=== PATIENT | female | born 1955 | race Caucasian/White ===

== ENCOUNTER 2019-05-22 07:41 | Observation (INO) ==
[2019-05-22] MEDS ORDERED: levoFLOXacin 750 MG/150 ML 750 MG/150 ML BAG IVPB ONE (08:20)
[2019-05-22] MEDS ORDERED: 0.9 % Sodium Chloride 1,000 ML IVC SCH ×2 (08:30→16:31)
[2019-05-22 08:40] LABS: Basophils # 0.1 K/mcL (0.0-0.2); Basophils % 0.6 %; Eosinophils # 0.2 K/mcL (0.0-0.6); Eosinophils % 1.4 %; Hematocrit 37.9 % (35.3-44.9); Hemoglobin 12.5 g/dL (11.5-15.4); Immature Granulocytes % 1.7 % (0-4); Lymphocytes # 2.2 K/mcL (0.6-4.6); Lymphocytes % 17.8 %; Mean Corpuscular Hemoglobin 32.1 pg (28.0-33.3); Mean Corpuscular Volume 97.2 fL (83.0-100.0); Mean Platelet Volume 8.9 fL (9.4-12.4); Monocytes # 0.7 K/mcL (0.0-1.3); Monocytes % 5.3 %; Platelet Count 510 K/mcL (140-400); Red Cell Distribution Width 12.9 % (11.5-14.5); Segmented Neutrophils % 73.2 %; White Blood Count 12.3 K/mcL (4.3-11.1)
[2019-05-22 08:47] LABS: Prothrombin Time 11.5 Seconds (9.4-12.1)
[2019-05-22 08:56] LABS: Alanine Aminotransferase 9 Units/L (7-52); Albumin 3.9 g/dL (3.5-5.7); Albumin/Globulin Ratio 1.3 (1.1-2.2); Alkaline Phosphatase 108 Units/L (34-104); Aspartate Amino Transferase 10 Units/L (13-39); BUN/Creatinine Ratio 19 (6-26); Bilirubin,Total 0.4 mg/dL (0.3-1.0); Blood Urea Nitrogen 11 mg/dL (8-23); Carbon Dioxide 26 mEq/L (23-29); Chloride 105 mEq/L (98-107); Glucose 106 mg/dL (70-105); Osmolality,Calculated 286 (280-300); Potassium 3.8 mEq/L (3.5-5.1); Sodium 138 mEq/L (136-145); Total Protein 6.9 g/dL (6.4-8.9); eGFR For African Americans > 60 (> 60); eGFR For Non-African Americans > 60 (> 60)
[2019-05-22] MEDS ORDERED: *HR* Midazolam HCl 2 MG/2 ML VIAL ONE (13:05)
[2019-05-22] MEDS ORDERED: *HR* FentaNYL (PF) 100 MCG/2 ML VIAL ONE (13:05)
[2019-05-22] MEDS ORDERED: *HR* Propofol 200 MG/20 ML VIAL IVP ONE (13:07)
[2019-05-22] MEDS ORDERED: Lidocaine -MPF 2% 2 ML VIAL ONE (13:08)
[2019-05-22] MEDS ORDERED: *HR* Succinylcholine 200 MG/10 ML VIAL IVP ONE (13:14)
[2019-05-22] MEDS ORDERED: *HR* OxyCODONE Immed Rel 5 MG TABLET PO PRN (13:42)
[2019-05-22] MEDS ORDERED: traMADol 50 MG TABLET PO PRN (13:42)
[2019-05-22] MEDS ORDERED: Ketorolac 30 MG/ML VIAL IVP ONE (13:42)
[2019-05-22] MEDS ORDERED: *HR* Promethazine 25 MG/ML VIAL IVP PRN (13:42)
[2019-05-22] MEDS ORDERED: Acetaminophen IV 1,000 MG/100 ML INFUS..BTL IVPB ONE (13:42)
[2019-05-22] MEDS ORDERED: Ringers Solution, Lactated 1,000 ML IVC SCH (13:45)
[2019-05-22] MEDS ORDERED: Dexamethasone 4 MG/ML VIAL ONE (13:49)
[2019-05-22] MEDS ORDERED: Ondansetron 4 MG/2 ML VIAL ONE ×2 (13:49→15:44)
[2019-05-22] MEDS ORDERED: cefTRIAXone 2,000 MG in Water for inj. (sterile) 20 ML IVP ONE (14:08)
[2019-05-22] MEDS ORDERED: Ketorolac 30 MG/ML VIAL ONE ×2 (15:09)
[2019-05-22 16:02] VITALS: BP 108/69
[2019-05-22] MEDS ORDERED: *HR* OxyCODONE/APAP 5/325 TABLET PO PRN (16:31)
[2019-05-22] MEDS ORDERED: Acetaminophen 325 MG TABLET PO PRN (16:31)
== END 2019-05-22 18:36 | disposition home or self-care (01) ==
LOC: EMEROOARM 07:41 → 3BNU 07:41
PROVIDERS: ADMIT Surgery; ATTEND Surgery

== ENCOUNTER 2021-01-16 11:48 | Observation (INO) ==
[2021-01-16] MEDS ORDERED: Morphine Sulfate 2 MG/ML SYRINGE IVP ONE (13:26)
[2021-01-16] MEDS ORDERED: 0.9 % Sodium Chloride 1,000 ML IV ONE (13:26)
[2021-01-16] MEDS ORDERED: Ondansetron 4 MG/2 ML VIAL IVP ONE (13:26)
[2021-01-16 14:41] LABS: Bacteria,Urine Few per hpf (None-Few); Bilirubin,Urine Negative (Negative); Blood,Urine Large (Negative); Clarity,Urine Turbid (Clear); Color,Urine Yellow (Yellow); Glucose,Urine (UA) Normal (Normal); Ketones,Urine Negative (Negative); Leukocyte Esterase,Urine Large (Negative); Mucus,Urine Moderate per lpf (None-Few); Nitrite,Urine Negative (Negative); Protein,Urine 200 mg/dL (Neg-Trace); RBC,Urine TNTC per hpf (0-3); Renal Epithelial Cells,Urine Few per hpf (None-Few); Specific Gravity,Urine 1.018 (1.010-1.025); Squamous Epithelial Cell,Urine Moderate per hpf (None-Few); Urobilinogen,Urine Normal (Normal); WBC,Urine TNTC per hpf (0-3)
[2021-01-16 15:12] LABS: Basophils % 0.3 %; Hemoglobin 8.5 g/dL (11.5-15.4); Immature Platelets 3.5 % (1.1-6.1); Lymphocytes # 0.2 K/mcL (0.6-4.6); Lymphocytes % 4.5 %; Mean Corpuscular HGB Conc 32.7 g/dL (31.6-35.5); Mean Corpuscular Hemoglobin 33.1 pg (28.0-33.3); Mean Corpuscular Volume 101.2 fL (83.0-100.0); Mean Platelet Volume 9.8 fL (9.4-12.4); Monocytes # 0.1 K/mcL (0.0-1.3); Monocytes % 2.8 %; Neutrophils # 3.2 K/mcL (1.6-8.9); Platelet Count 66 K/mcL (140-400); Red Blood Count 2.57 M/mcL (3.82-4.97); Red Cell Distribution Width 15.9 % (11.5-14.5); Segmented Neutrophils % 90.4 %; White Blood Count 3.5 K/mcL (4.3-11.1)
[2021-01-16 15:24] LABS: INR 1.2; Prothrombin Time 13.5 Seconds (9.4-12.1)
[2021-01-16 15:27] LABS: Activated Partial Thrombo Time 24.3 Seconds (26.0-36.0)
[2021-01-16 15:33] LABS: Alanine Aminotransferase 11 Units/L (7-52); Albumin 3.1 g/dL (3.5-5.7); Albumin/Globulin Ratio 1.1 (1.1-2.2); Alkaline Phosphatase 97 Units/L (34-104); Aspartate Amino Transferase 11 Units/L (13-39); BUN/Creatinine Ratio 23 (6-26); Bilirubin,Total 0.8 mg/dL (0.3-1.0); Blood Urea Nitrogen 19 mg/dL (8-23); Carbon Dioxide 21 mEq/L (23-29); Chloride 102 mEq/L (98-107); Creatine Kinase 36 Units/L (30-223); Globulin 2.9 g/dL (2.4-3.5); Glucose 105 mg/dL (70-105); Lipase 3 Units/L (11-82); Magnesium 2.1 mg/dL (1.6-2.6); Osmolality,Calculated 279 (280-300); Potassium 3.1 mEq/L (3.5-5.1); Sodium 133 mEq/L (136-145); Troponin I 0.03 ng/mL (< 0.04); eGFR For African Americans > 60 (> 60); eGFR For Non-African Americans > 60 (> 60)
[2021-01-16 15:46] LABS: Thyroid Stimulating Hormone 10.132 mcIU/mL (0.340-5.600)
[2021-01-16 15:59] LABS: Platelet Estimate Decreased (Normal)
[2021-01-16 16:00] LABS: Hypochromasia Present (Not Present)
[2021-01-16] MEDS ORDERED: Azithromycin 500 MG in 0.9 % Sodium Chloride 250 ML IVPB ONE (16:37)
[2021-01-16] MEDS ORDERED: cefTRIAXone 1,000 MG in Water for inj. (sterile) 10 ML IVP ONE (16:37)
[2021-01-16] MEDS ORDERED: Ondansetron ODT 4 MG TAB.RAPDIS SL PRN (16:53)
[2021-01-16] MEDS ORDERED: Naloxone 0.4 MG/ML INJ IVP PRN (16:53)
[2021-01-16] MEDS ORDERED: Mag Hydrox/Al Hydrox/Simeth 30 ML UDC PO PRN (16:53)
[2021-01-16] MEDS ORDERED: Melatonin 3 MG TABLET PO PRN (16:53)
[2021-01-16] MEDS ORDERED: 0.9 % Sodium Chloride 1,000 ML IVC SCH (17:00)
[2021-01-16] MEDS ORDERED: *HR* Meperidine 25 MG/ML SYRINGE IVP PRN (17:50)
[2021-01-16] MEDS ORDERED: Promethazine 6.25 MG in Water for inj. (sterile) 20 ML IVPB PRN (17:50)
[2021-01-16] MEDS ORDERED: *HR* HYDROmorphone PF 0.5 MG/0.5 ML SYRINGE IVP PRN (17:50)
[2021-01-16] MEDS ORDERED: *HR* Propofol 200 MG/20 ML VIAL IVP ONE (17:56)
[2021-01-16] MEDS ORDERED: *HR* FentaNYL (PF) 100 MCG/2 ML VIAL ONE (17:56)
[2021-01-16] MEDS ORDERED: Lidocaine -MPF 2% 2 ML VIAL ONE (17:56)
[2021-01-16] MEDS ORDERED: Ondansetron 4 MG/2 ML VIAL ONE (17:59)
[2021-01-16] MEDS ORDERED: Acetaminophen IV 1,000 MG/100 ML BAG IVPB ONE (18:00)
[2021-01-16] MEDS ORDERED: Hydrocortisone Sodium Succ 100 MG/2 ML VIAL ONE (18:18)
[2021-01-16] MEDS ORDERED: Isovue-300 50ML VIAL ONE (18:21)
[2021-01-17 06:43] LABS: Hematocrit 26.6 % (35.3-44.9); Hemoglobin 8.6 g/dL (11.5-15.4); Mean Corpuscular HGB Conc 32.3 g/dL (31.6-35.5)
[2021-01-17 06:45] LABS: Basophils % 0.2 %; Immature Platelets 6.7 % (1.1-6.1); Lymphocytes # 0.5 K/mcL (0.6-4.6); Mean Corpuscular Hemoglobin 32.7 pg (28.0-33.3); Mean Corpuscular Volume 101.1 fL (83.0-100.0); Mean Platelet Volume 11.1 fL (9.4-12.4); Monocytes # 0.3 K/mcL (0.0-1.3); Neutrophils # 4.2 K/mcL (1.6-8.9); Red Blood Count 2.63 M/mcL (3.82-4.97); Red Cell Distribution Width 15.8 % (11.5-14.5); Segmented Neutrophils % 84.8 %
[2021-01-17 06:48] LABS: Platelet Count 66 K/mcL (140-400)
[2021-01-17 06:49] VITALS: BP 108/72; PULSE 96; TEMP 98.4; O2SAT 98
[2021-01-17] MEDS ORDERED: Naloxone 0.4 MG/ML INJ IVP PRN (07:05)
[2021-01-17] MEDS ORDERED: Ondansetron ODT 4 MG TAB.RAPDIS SL PRN (07:05)
[2021-01-17] MEDS ORDERED: Mag Hydrox/Al Hydrox/Simeth 30 ML UDC PO PRN (07:05)
[2021-01-17] MEDS ORDERED: Melatonin 3 MG TABLET PO PRN (07:05)
[2021-01-17 07:06] LABS: Anisocytosis 1+ (Not Present); Hypochromasia Present (Not Present); Platelet Estimate Decreased (Normal)
[2021-01-17 07:08] LABS: Reactive Lymphocytes Present (Not Present)
[2021-01-17 07:13] LABS: BUN/Creatinine Ratio 28 (6-26); Blood Urea Nitrogen 19 mg/dL (8-23); Calcium 8.2 mg/dL (8.6-10.3); Carbon Dioxide 23 mEq/L (23-29); Chloride 104 mEq/L (98-107); Glucose 141 mg/dL (70-105); Magnesium 2.5 mg/dL (1.6-2.6); Osmolality,Calculated 281 (280-300); Phosphorous 1.4 mg/dL (2.7-4.5); Potassium 3.9 mEq/L (3.5-5.1); Sodium 133 mEq/L (136-145); eGFR For African Americans > 60 (> 60); eGFR For Non-African Americans > 60 (> 60)
[2021-01-17] MEDS ORDERED: cefTRIAXone 1,000 MG in Water for inj. (sterile) 10 ML IVP SCH ×2 (09:00)
[2021-01-17] MEDS ORDERED: Azithromycin 500 MG in 0.9 % Sodium Chloride 250 ML IVPB SCH ×2 (17:00)
== END 2021-01-17 10:45 | disposition home or self-care (01) ==
LOC: SUATTDRO → 2ANU 11:48 → EMEROOARM 11:48 → SUATTDRO 17:18 → 2ANU 18:11
PROVIDERS: ADMIT Family Medicine; ATTEND Family Medicine